=== PATIENT | female | born 1955 | race African-American/Black ===

== ENCOUNTER → 2017-05-07 | Outpatient (CLI) | payer OTHER | LOC: M RAD 06:49 | DX: Z12.31 Encounter for screening mammogram for malignant neoplasm of breast (principal); I10 Essential (primary) hypertension | CPT/HCPCS: 93880 ==

== ENCOUNTER → 2017-11-16 | Outpatient (CLI) | payer OTHER | LOC: M RAD 15:20 | DX: R22.2 Localized swelling, mass and lump, trunk (principal) | CPT/HCPCS: 76882 ==

== ENCOUNTER → 2018-04-08 | Outpatient (CLI) | payer OTHER ==
[~2018-04-08] MED LIST: GASTROGRAFIN SOLUTION 30ML (Q9963) As Ordered; ISOVUE-370 76% 100ML VIAL (Q9967) As Ordered
== END ==
LOC: M RAD 07:11
DX: M51.26 Other intervertebral disc displacement, lumbar region (principal); M47.896 Other spondylosis, lumbar region
CPT/HCPCS: 72148

== ENCOUNTER → 2018-05-14 | Outpatient (CLI) | payer OTHER ==
[~2018-05-14] MED LIST changes: +ALLE25CA; +ASPI81TA85 PO; +BYST5TAB2 PO; +DILT120C3; +EPI PEN INJ; -GASTROGRAFIN SOLUTION 30ML (Q9963) As Ordered; +HYDR25TA6; -ISOVUE-370 76% 100ML VIAL (Q9967) As Ordered; +PHEN-239 PO; +POTA10CA2; +PRED10TA2; +TRIA37.53 PO; +VITA-112 PO; +VITA2000 PO; +VITAMIN D50000 UNT; +[UNRECOGNIZED DRUG - OTHER] TOP
--- NOTE | 2018-05-14 08:51 | REPMRS ---
Patient History The patient states she has not had a clinical breast exam in over a year. Family history of breast cancer at age 62 in mother. Benign excisional biopsy of the left breast, 2013. Took hormonal contraceptives for 14 years. Digital Mammo Screening Bilat: May 14, 2018 - Exam #: [id number] Bilateral CC and MLO view(s) were taken. Technologist: Linda Zamora, Technologist Prior study comparison: May 07, 2017, bilateral digital mammo screening bilat performed at [facility]. May 01, 2016, digital woman screen mammo, performed at [facility]. February 07, 2015, digital woman screen mammo, performed at [facility]. FINDINGS: There are scattered fibroglandular densities. There has been no change in the appearance of the mammogram from the prior studies. There is a mild amount of scattered fibroglandular density which is fairly symmetric. There is no interval development of dominant mass, architectural distortion, or clustered microcalcification suggestive of malignancy. 3-D tomosynthesis shows no additional findings. Assessment: BI-RADS/ACR category 1 mammogram. Negative. Recommendation Routine screening mammogram of both breasts in 1 year (for women over age 40). This patient's Lifetime Breast Cancer RIsk is estimated at 14.8 %. This mammogram was interpreted with the aid of an FDA-approved computer-aided dectection system. Electronically Signed By: Alireza Rice MD 05/14/18 [id number]
== END ==
LOC: M RAD 07:12
PROVIDERS: ATTEND Family Medicine
DX: Z12.31 Encounter for screening mammogram for malignant neoplasm of breast (principal); Z80.3 Family history of malignant neoplasm of breast

== ENCOUNTER → 2019-07-18 | Outpatient (CLI) | payer OTHER ==
--- NOTE | 2019-07-18 16:11 | REPMRS ---
Patient History The patient states she had a clinical breast exam in 06/2019. Family history of breast cancer at age 62 in mother. Benign excisional biopsy of the left breast, 2013. Took hormonal contraceptives for 14 years. 3D TOMOSYNTHESIS WAS PERFORMED. [facility] lifetime risk for breast cancer is 13.8%. Digital Woman Screen Mammo: July 18, 2019 - Exam #: [id number] Bilateral CC and MLO view(s) were taken. Technologist: Paulina Guthrie, Technologist Prior study comparison: May 14, 2018, bilateral digital mammo screening bilat, performed at [facility]. May 07, 2017, bilateral digital mammo screening bilat, performed at [facility]. FINDINGS: There are scattered fibroglandular densities. There has been no change in the appearance of the mammogram from the prior studies. There is a mild amount of residual fibroglandular tissue which is fairly symmetric. There is no interval development of dominant mass, architectural distortion, or clustered microcalcification suggestive of malignancy. Assessment: BI-RADS/ACR category 1 mammogram. Negative Mammogram. Recommendation Routine screening mammogram in 1 year (for women over age 40). This mammogram was interpreted with the aid of an FDA-approved computer-aided dectection system. Electronically Signed By: Mike Devries MD 07/18/19 [id number]
== END ==
LOC: M WHC 15:16
PROVIDERS: ATTEND Family Medicine
DX: Z12.31 Encounter for screening mammogram for malignant neoplasm of breast (principal)

== ENCOUNTER → 2019-08-30 | Outpatient (CLI) | payer OTHER ==
[~2019-08-30] MED LIST changes: +AMLO5TAB6 PO; +HYDR12.55 PO; +VITA50005 PO
== END ==
LOC: M LABSMTC 11:43
PROVIDERS: ATTEND Anesthesiology
DX: Z01.818 Encounter for other preprocedural examination (principal); Z11.59 Encounter for screening for other viral diseases

== ENCOUNTER 2019-08-31 12:12 | Day surgery (SDC) | payer OTHER ==
[~2019-08-31] VITALS: Ht 165.1 cm; Wt 98.4 kg
[~2019-08-31 12:12] MED LIST changes: +LIDOCAINE 2% 100MG/5ML SDV (FOR ANES.) As Ordered ONE; +NS 1,000 ML IV ONE; +propofoL 200 MG/20 ML VIAL As Ordered ONE
[2019-08-31] MEDS ORDERED: propofoL 200 MG/20 ML VIAL As Ordered ONE (13:48)
--- NOTE | 2019-08-31 14:06 | ROOR ---
Patient Name: Julee Bradshaw Procedure Date: 08/31/2019 1:39 PM Date of : 1955 Age: 64 Room: [facility] Gender: Female Note Status: Finalized Procedure: Total Colonoscopy to Cecum Indications: Screening for colorectal malignant neoplasm Providers: Kulwant Medrano MD Referring MD: CARLOTA DELUNA MD Requesting Provider: Medicines: Monitored Anesthesia Care Complications: No immediate complications. Procedure: Pre-Anesthesia Assessment: - The heart rate, respiratory rate, oxygen saturations, blood pressure, adequacy of pulmonary ventilation, and response to care were monitored throughout the procedure. The Colonoscope was introduced through the anus and advanced to the cecum, identified by appendiceal orifice and ileocecal valve. The colonoscopy was performed without difficulty. The patient tolerated the procedure well. The quality of the bowel preparation was excellent. Findings: The perianal and digital rectal examinations were normal. No other significant abnormalities were identified in a careful examination of the remainder of the colon. The exam was otherwise without abnormality on direct and retroflexion views. Impression: - The examination was otherwise normal on direct and retroflexion views. - No specimens collected. - The exam was otherwise normal to the cecum. Recommendation: - Patient has a contact number available for emergencies. The signs and symptoms of potential delayed complications were discussed with the patient. Return to normal activities tomorrow. Written discharge instructions were provided to the patient. - High fiber diet. - Discharge patient to home. - Continue present medications. - Repeat colonoscopy in 10 years for screening purposes. - Return to referring physician. - The findings and recommendations were discussed with the patient's family. Kulwant Medrano MD Kulwant Medrano MD 08/31/2019 2:05:58 PM Electronically signed by Kulawnt Medrano MD Number of Addenda: 0 Note Initiated On: 08/31/2019 1:39 PM Estimated Blood Loss: Estimated blood loss: none.
[2019-08-31 14:36] VITALS: BP 124/80
== END 2019-08-31 14:37 | disposition home or self-care (01) ==
LOC: M OPP 12:12
PROVIDERS: ATTEND Internal Medicine Gastroenterology
DX: Z12.11 Encounter for screening for malignant neoplasm of colon (principal)

== ENCOUNTER → 2020-07-18 | Outpatient (CLI) | payer OTHER ==
[~2020-07-18] MED LIST changes: +AMLO1TAB24 PO; -AMLO5TAB6 PO; -ASPI81TA85 PO; +ASPI81TA86 PO; -LIDOCAINE 2% 100MG/5ML SDV (FOR ANES.) As Ordered ONE; -NS 1,000 ML IV ONE; -propofoL 200 MG/20 ML VIAL As Ordered ONE
--- NOTE | 2020-07-18 16:37 | REPMRS ---
Patient History The patient states she had a clinical breast exam in 07/2020 Family history of breast cancer at age 62 in mother. Benign excisional biopsy of the left breast, 2013. Took hormonal contraceptives for 14 years. Digital Woman Screen Mammo: July 18, 2020 - Exam #: [id number] Bilateral CC and MLO view(s) were taken. Technologist: Alla Patel, Technologist Prior study comparison: July 18, 2019, bilateral digital woman screen mammo performed at [facility]. May 14, 2018, bilateral digital mammo screening bilat, performed at [facility]. May 07, 2017, bilateral digital mammo screening bilat, performed at [facility]. FINDINGS: The breast tissue is almost entirely fat. The [employer] volumetric breast density category is: A. There has been no change in the appearance of the mammogram from the prior studies. There is no interval development of dominant mass, architectural distortion, or grouped microcalcification typical of malignancy. 3-D tomosynthesis shows no additional findings. Assessment: BI-RADS/ACR category 1 mammogram. Negative Mammogram. Recommendation Routine screening mammogram of both breasts in 1 year (for women over age 40). This patient's [facility] Lifetime Breast Cancer RIsk is estimated at 13.2 %. This mammogram was interpreted with the aid of an FDA-approved computer-aided dectection system. Electronically Signed By: Alireza Rice MD 07/18/20 [id number]
--- NOTE | 2020-07-18 16:53 | DEXAMM ---
INDICATION: M85.80 [facility] DISRD OF BONE DENSITY AND STRUCTURE. COMPARISON: Comparison mammography October 28, 2006 and February 01, 2004. TECHNIQUE: Bone density was measured using dual-energy x-ray absorptionmetry (DEXA). FINDINGS: AP SPINE L1-L4 BMD 1.151 g/cm2 Young Adult T-Score -0.4 Age Matched Z-Score 0.5. LT FEMUR, TOTAL BMD 1.104 g/cm2 Young Adult T-Score 0.8 Age Matched Z-Score 0.9. LT NECK BMD 0.973 g/cm2 Young Adult T-Score -0.5 Age Matched Z-Score 0.0. RT FEMUR, TOTAL BMD 1.091 g/cm2 Young Adult T-Score 0.7 Age Matched Z-Score 0.8. RT NECK BMD 0.962 g/cm2 Young Adult T-Score -0.5 Age Matched Z-Score 0.0. IMPRESSION: There is normal bone density of the spine. There is normal bone density of the left hip. There is normal bone density of the right hip. The density of the spine has increased 0.1% since the initial exam on February 01, 2004. The density of the spine increased 3.4% since most recent exam on October 28, 2006. The density of the left hip has increased 4.8% since initial exam on February 01, 2004. The density of the left hip has increased 1.9% since most recent exam on October 28, 2006. The density of the right hip has increased 6.1% since the initial exam on November 01, 2003. The density of the right hip has decreased 1.3% since the most recent exam on October 28, 2006. FOLLOW-UP: Recommendation for the next bone density exam: 5 years. <Electronically signed by Alireza Rice > 07/18/20 [id number]
== END ==
LOC: M WHC 14:38
PROVIDERS: ATTEND Family Medicine
DX: Z12.31 Encounter for screening mammogram for malignant neoplasm of breast (principal); Z13.828 Encounter for screening for other musculoskeletal disorder; M85.80 Other specified disorders of bone density and structure, unspecified site; Z92.0 Personal history of contraception

== ENCOUNTER → 2023-04-21 | Outpatient (CLI) | payer OTHER ==
[~2023-04-21] MED LIST changes: +ERGO500029 PO; -TRIA37.53 PO; +TRIA37.577 PO; -VITA50005 PO
[2023-04-21 17:42] LABS: HEMATOCRIT 39.7 % (36.0-47.0); HEMOGLOBIN 13.7 g/dl (12.0-15.5); MEAN CORPUSCULAR HEMOGLOBIN 30.3 pg (27.0-33.0); MEAN CORPUSCULAR HGB CONC 34.5 g/dl (32.0-36.5); MEAN CORPUSCULAR VOLUME 87.8 fl (80.0-96.0); PLATELET COUNT, AUTOMATED 233 10^3/uL (150-450); RED BLOOD COUNT 4.52 10^6/uL (4.00-5.40); WHITE BLOOD COUNT 4.8 10^3/uL (4.0-10.0)
[2023-04-21 17:53] LABS: ERYTHROCYTE SEDIMENTATION RATE 5 mm/hr (0-30)
[2023-04-21 18:02] LABS: URIC ACID 5.1 MG/DL (3.1-7.8)
[2023-04-21 18:04] LABS: C REACTIVE PROTEIN QUANTITATIV < 0.40 MG/DL (<1.0)
[2023-04-21 18:06] LABS: ALBUMIN 3.8 G/DL (3.2-5.2); ALKALINE PHOSPHATASE 103 U/L (46-116); ALT/SGPT 12 U/L (7.0-40); AST/SGOT 11 U/L (<34); BILIRUBIN,TOTAL 0.8 MG/DL (0.3-1.2); BLOOD UREA NITROGEN 11 MG/DL (9-23); CALCIUM LEVEL 9.5 MG/DL (8.3-10.6); CARBON DIOXIDE LEVEL 27 MMOL/L (20-31); CHLORIDE LEVEL 109 MMOL/L (98-107); CREATININE FOR GFR 0.91 MG/DL (0.55-1.30); GLOMERULAR FILTRATION RATE > 60.0 (>45); GLUCOSE, FASTING 123 MG/DL (74-106); POTASSIUM SERUM 4.2 MMOL/L (3.5-5.1); SODIUM LEVEL 142 MMOL/L (136-145); TOTAL PROTEIN 6.8 G/DL (5.7-8.2)
[2023-04-21 18:07] LABS: RHEUMATOID FACTOR QUANT < 3.5 IU/ML (<14)
== END ==
LOC: M RAD 16:48
PROVIDERS: ATTEND Registered Nurse
DX: M25.571 Pain in right ankle and joints of right foot (principal)

== ENCOUNTER → 2024-07-01 | Outpatient (CLI) | payer OTHER, MEDICARE ==
[~2024-07-01] MED LIST changes: +BYST1TAB2 PO; -BYST5TAB2 PO
== END ==
LOC: M WHC 09:44
PROVIDERS: ATTEND Family Medicine
DX: Z12.31 Encounter for screening mammogram for malignant neoplasm of breast (principal); M81.0 Age-related osteoporosis without current pathological fracture

== ENCOUNTER → 2024-07-15 | Outpatient (CLI) | payer OTHER, MEDICARE | LOC: M WHC 10:46 | PROVIDERS: ATTEND Family Medicine | DX: E04.9 Nontoxic goiter, unspecified (principal) ==

== ENCOUNTER → 2024-07-15 | Outpatient (CLI) | payer OTHER, MEDICARE ==
[2024-07-15 17:18] LABS: MALB URINE SIEMENS < 3.0 MG/L
== END ==
LOC: M PLALAB 11:33
PROVIDERS: ATTEND Family Medicine
DX: E55.9 Vitamin D deficiency, unspecified (principal); N18.31 Chronic kidney disease, stage 3a

== ENCOUNTER → 2024-11-15 | Outpatient (CLI) | payer OTHER, MEDICARE ==
[~2024-11-15] MED LIST changes: +LIDOCAINE 1% MDV 20 ML VIAL As Ordered ONE; -PHEN-239 PO; +PHEN37.511 PO
[2024-11-15 07:45] VITALS: TEMP 97.3
[2024-11-15 08:26] VITALS: BP 114/81; O2SAT 99
== END ==
LOC: M IRPRO 07:13
PROVIDERS: ATTEND Nurse Practitioner Family
DX: E04.1 Nontoxic single thyroid nodule (principal)

== ENCOUNTER → 2024-12-09 | Outpatient (CLI) | payer OTHER, MEDICARE ==
[~2024-12-09] MED LIST changes: -LIDOCAINE 1% MDV 20 ML VIAL As Ordered ONE
[2024-12-09 15:07] LABS: BASO # 0.0 10^3/uL (0.0-0.2); BASO % 0.8 % (0.0-1.0); EOS # 0.1 10^3/uL (0.0-0.5); EOS % 2.3 % (0.0-3.0); LYMPH # 2.5 10^3/uL (1.5-5.0); LYMPH % 51.2 % (24.0-44.0); MONO # 0.4 10^3/uL (0.0-0.8); MONO % 7.6 % (2.0-8.0); NEUTROPHILS # 1.9 10^3/uL (1.5-8.5); NEUTROPHILS % 37.9 % (36.0-66.0); PLATELET COUNT, AUTOMATED 257 10^3/uL (150-450)
[2024-12-09 15:45] LABS: CALCIUM LEVEL 9.4 MG/DL (8.3-10.6); CARBON DIOXIDE LEVEL 28.0 MMOL/L (20-31); CHLORIDE LEVEL 104.0 MMOL/L (98-107); CREATININE FOR GFR 0.97 MG/DL (0.55-1.30); GLOMERULAR FILTRATION RATE 63.7 (>45); POTASSIUM SERUM 3.7 MMOL/L (3.5-5.1); SODIUM LEVEL 142.0 MMOL/L (136-145)
[2024-12-09 15:46] LABS: FREE T4 1.19 NG/DL (0.89-1.76); TOTAL 25(OH) VITAMIN D 54.6 NG/ML (20.0-100.0)
== END ==
LOC: M LAB 14:14
PROVIDERS: ATTEND Family Medicine
DX: I10 Essential (primary) hypertension (principal); E67.3 Hypervitaminosis D; E05.90 Thyrotoxicosis, unspecified without thyrotoxic crisis or storm; R53.83 Other fatigue